=== PATIENT | female | born 1985 ===

== ENCOUNTER 2016-08-03 13:46 | Emergency (ER) | payer BC ==
[2016-08-03 13:58] VITALS: BMI 24.5
[2016-08-03 14:01] VITALS: TEMP 97.9; O2SAT 100
[2016-08-03] MEDS ORDERED: Sodium Chloride 0.9% 1,000 ML IV STA (14:21)
[2016-08-03 14:41] LABS: ADD MANUAL DIFF? NO
--- NOTE | 2016-08-03 14:47 | ED PDOC ---
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 Patient reports yesterday night prior to intercourse the pain was dull but after intercourse it became worse. Patient states in the middle of the night she went to have a bowel movement and the pain became worse and as she was walking back to the bed she had a near syncopal episode. She denies any nausea, vomiting, diarrhea, constipation, urinary symptoms, fever, chest pain, shortness of breath, or any other complaints at this time. Last menstrual cycle was on 07/13/2016. PMD: None Time/Duration: Other (12-18 hours) Symptom Onset: Sudden Symptom Course: Unchanged Quality: Other Activities at Onset: Rest Context: Home Past Medical History - Provider Review Nursing Documentation Reviewed: Yes - Infectious Disease Hx of Infectious Diseases: None - Cardiac Hx Cardiac Disorders: No - Pulmonary Hx Respiratory Disorders: No - Neurological Hx Neurological Disorder: No - HEENT Hx HEENT Disorder: No - Renal Hx Renal Disorder: No - Endocrine/Metabolic Hx Endocrine Disorders: No - Hematological/Oncological Hx Blood Disorders: No - Integumentary Hx Dermatological Disorder: No - Musculoskeletal/Rheumatological Hx Musculoskeletal Disorders: No - Gastrointestinal Hx Gastrointestinal Disorders: No - Genitourinary/Gynecological Hx Genitourinary Disorders: No - Psychiatric Hx Psychophysiologic Disorder: No Hx Substance Use: No - Surgical History Other/Comment: deviated sputum repair - Anesthesia Hx Anesthesia: Yes Hx Anesthesia Reactions: No Family/Social History - Physician Review Nursing Documentation Reviewed: Yes Family/Social History: Unknown Family HX Smoking Status: Never Smoked Hx Alcohol Use: No Hx Substance Use: No Allergies/Home Meds Allergies/Adverse Reactions: Allergies aspirin Allergy (Verified 08/03/16 13:58) RASH Review of Systems - Physician Review All systems were reviewed & negative as marked: Yes - Review of Systems Constitutional: absent: Fevers Respiratory: absent: SOB Cardiovascular: absent: Chest Pain Gastrointestinal: Abdominal Pain. absent: Constipation, Diarrhea, Nausea, Vomiting Genitourinary Female: absent: Dysuria, Frequency, Hematuria, Urine Output Changes Physical Exam Vital Signs Reviewed: Yes Vital Signs Temp Pulse Resp BP Pulse Ox 08/03/16 16:57 56 L 14 109/62 100 08/03/16 14:00 97.9 F 50 L 18 108/71 100 Temperature: Afebrile Blood Pressure: Normal Pulse: Bradycardic Respiratory Rate: Normal Appearance: Positive for: Well-Appearing, Non-Toxic, Comfortable Pain Distress: None Mental Status: Positive for: Alert and Oriented X 3 - Systems Exam Head: Present: Atraumatic, Normocephalic Pupils: Present: PERRL Conjunctiva: Present: Normal Mouth: Present: Moist Mucous Membranes Pharnyx: Present: Normal. No: ERYTHEMA, EXUDATE Neck: Present: Normal Range of Motion Respiratory/Chest: Present: Clear to Auscultation, Good Air Exchange. No: Respiratory Distress, Accessory Muscle Use Cardiovascular: Present: Normal S1, S2, Bradycardic. No: Murmurs Abdomen: Present: Tenderness (b/L lower pelvic pain (L>R); no lower or upper quadrant pain), Normal Bowel Sounds. 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 No: Cyanosis, Edema Lower Extremity: Present: Normal Inspection. No: Edema Neurological: Present: GCS=15, CN II-XII Intact, Speech Normal Skin: Present: Warm, Dry, Normal Color. No: Rashes Psychiatric: Present: Alert, Oriented x 3, Normal Insight, Normal Concentration Medical Decision Making ED Course and Treatment: 08/03/16 14:08 Impression: A 30 year old female with suprapubic pain. Differential Diagnosis include but are not limited to: ovarian cyst vs. STD vs UTI Plan: -- Transvaginal US -- Labs -- Urinalysis -- Chlamydia/GC RNA -- Toradol and IV Fluids -- Reassess and disposition Progress Notes: 08/03/16 17:47 Patient with noted history with adnexal tenderness on exam. No abdominal tenderness; labs are unremarkable. Sono showing no trosion but free fluid is present, and patient and feels full resolution of symptoms with nsaid - etiology may have been possible ovarian cyst rupture. 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 - Lab Interpretations Lab Results: 08/03/16 14:30 08/03/16 14:30 Lab Results 08/03/16 14:30: Urine Color Yellow, Urine Appearance Clear, Urine pH 6.0, Ur Specific [place] >= 1.030, Urine Protein Negative, Urine Glucose (UA) Negative, Urine Ketones Negative, Urine Blood Negative, Urine Nitrate Negative, Urine Bilirubin Negative, Urine Urobilinogen 0.2, Ur Leukocyte Esterase Negative, Urine HCG, Qual Negative 08/03/16 14:30: Sodium 137, Potassium 3.9, Chloride 101, Carbon Dioxide 25, Anion Gap 15, BUN 12, Creatinine 0.7, Est GFR ( Amer) > 60, Est GFR (Non- Af Amer) > 60, Random Glucose 85, Calcium 9.4, Total Bilirubin 1.0, AST 24, ALT 36, Alkaline Phosphatase 50, Total Protein 8.0, Albumin 4.5, Globulin 3.5, Albumin/Globulin Ratio 1.3, Amylase 127 H, Lipase 61 08/03/16 14:30: PT 11.6, INR 1.07, APTT 28.9 08/03/16 14:30: WBC 6.7, RBC 4.97, Hgb 15.0, Hct 43.2, MCV 86.9, MCH 30.2, MCHC 34.7, RDW 13.2, Plt Count 183, MPV 11.6 H, Gran % 50.8, Lymph % (Auto) 41.5 H, [place] % (Auto) 6.7 H, Eos % (Auto) 0.9 L, Baso % (Auto) 0.1, Gran # 3.41, Lymph # 2.8, [place] # 0.5, Eos # 0.1, Baso # 0.01 I have reviewed the lab results: Yes - RAD Interpretation Radiology Orders: 08/03/16 14:21 TRANSVAGINAL [US] Stat - Medication Orders Current Medication Orders: Discontinued Medications Sodium Chloride (Sodium Chloride 0.9%) 1,000 mls @ 999 mls/hr IV .Q1H1M STA Stop: 08/03/16 15:21 Last Admin: 08/03/16 14:45 Dose: 999 mls/hr Ketorolac Tromethamine (Toradol) 30 mg IVP STAT STA Stop: 08/03/16 14:21 Last Admin: 08/03/16 14:44 Dose: 30 mg - Scribe Statement The provider has reviewed the documentation as recorded by the Britneyibosmin Calzada Provider Scribe Attestation: All medical record entries made by the Scribe were at my direction and personally dictated by me. I have reviewed the chart and agree that the record accurately reflects my personal performance of the history, physical exam, medical decision making, and the department course for this patient. I have also personally directed, reviewed, and agree with the discharge instructions and disposition. Disposition/Present on Arrival - Present on Arrival Any Indicators Present on Arrival: No History of DVT/PE: No History of Uncontrolled Diabetes: No Urinary Catheter: No History of Decub. Ulcer: No History Surgical Site Infection Following: None - Disposition Have Diagnosis and Disposition been Completed?: Yes Diagnosis: Pelvic pain Disposition: HOME/ ROUTINE Disposition Time: 17:50 Patient Plan: Discharge Condition: GOOD Discharge Instructions (ExitCare): Ovarian Cyst (ED) Additional Instructions: Take Naprosyn as needed for pain. Drink plenty of fluids. Avoid intercourse till full resolution of symptoms. Follow up with gynecology. Return to the emergency department if any new concerning symptoms. Prescriptions: Naproxen [Naprosyn] 500 mg PO BID PRN #30 tab PRN Reason: Pain Referrals: Earl Neal MD [Staff Provider] - Follow up with primary Oswald Moreau DO [Staff Provider] - Follow up with primary Forms: WORK NOTE
[2016-08-03 14:54] LABS: URINE BILIRUBIN NEGATIVE (NEGATIVE); URINE BLOOD NEGATIVE (NEGATIVE); URINE GLUCOSE (UA) NEGATIVE (NEGATIVE); URINE KETONE NEGATIVE (NEGATIVE); URINE LEUKOCYTE ESTERASE NEGATIVE Leu/uL (NEGATIVE); URINE PROTEIN NEGATIVE mg/dL (<30 mg/dL); URINE UROBILINOGEN 0.2 E.U./dL (<1 E.U./dL)
[2016-08-03 14:55] LABS: BASO # 0.01 [, K/mm3] (0.0-2.0); BASO % 0.1 % (0.0-3.0); EOS # 0.1 (0.0-0.7); EOS % 0.9 % (1.5-5.0); GRAN # 3.41 (1.4-6.5); GRAN % 50.8 % (50.0-68.0); HEMATOCRIT 43.2 % (36.0-48.0); LYMPH # 2.8 (1.2-3.4); LYMPH % 41.5 % (22.0-35.0); MEAN CELL VOLUME 86.9 fL (80.0-105.0); MEAN CORPUSCULAR HEMOGLOBIN 30.2 pg (25.0-35.0); MEAN CORPUSCULAR HGB CONC 34.7 g/dl (31.0-37.0); MEAN PLATELET VOLUME 11.6 fl (7.0-11.0); MONO # 0.5 (0.1-0.6); MONO % 6.7 % (1.0-6.0); PLATELET COUNT 183 [, 10^3/uL] (120.0-450.0); RED CELL DISTRIBUTION WIDTH 13.2 % (11.5-14.5); URINE APPEARANCE CLEAR (CLEAR); URINE COLOR YELLOW (YELLOW); WHITE BLOOD COUNT 6.7 [, 10^3/ul] (4.5-11.0)
[2016-08-03 14:59] LABS: INR 1.07 (0.93-1.08); PARTIAL THROMBOPLASTIN TIME 28.9 Seconds (23.7-30.8)
[2016-08-03 15:01] LABS: ALB/GLOB RATIO 1.3 (1.1-1.8); ALKALINE PHOSPHATASE 50 U/L (38-133); ALT/SGPT 36 U/L (7-56); AMYLASE 127 U/L (35-125); AST/SGOT 24 U/L (15-39); BLOOD UREA NITROGEN 12 mg/dL (7-21); CALCIUM 9.4 mg/dL (8.4-10.5); CARBON DIOXIDE 25 mmol/L (21-33); CHLORIDE 101 mmol/L (98-107); GFR AFRICAN-AMERICAN > 60; GLUCOSE,RANDOM 85 mg/dL (70-110); LIPASE 61 U/L (23-300); POTASSIUM 3.9 mmol/L (3.6-5.0); SODIUM 137 mmol/L (132-148)
[2016-08-03 17:11] VITALS: RESP 14
--- NOTE | 2016-08-03 17:37 | US ---
HISTORY: b/L pelvic pain post intercourse - r/o torsion. LMP 07/13/2016. COMPARISON: None. TECHNIQUE: Transvaginal only. Real -time technique with 2D, duplex and color Doppler FINDINGS: UTERUS: Measures 3.6 x 4.2 x 7 cm. Normal in size and appearance. No fibroid or other mass lesion seen. ENDOMETRIUM: Measures 12.9 mm in diameter. No ultrasound findings to suggest gestational sac, fluid, debris, mass or polyp or other pathologic process within the endometrium. CERVIX: No cervical abnormality identified. RIGHT OVARY: Measures 1.8 x 3.4 cm. No solid mass. Normal flow. LEFT OVARY: Measures 2.2 x 2.6 cm. No solid mass. Normal flow. FREE FLUID: Trace free fluid identified in the pelvis/cul de sac. OTHER FINDINGS: None. IMPRESSION: No evidence of adnexal torsion. Additional benign and/or incidental findings described above.
[2016-08-03 18:07] VITALS: BP 110/72; PULSE 52
== END 2016-08-03 18:07 | disposition home or self-care (01) ==
LOC: ED 13:46
DX: R10.2 Pelvic and perineal pain (principal)
CPT/HCPCS: 76830; 80053; 81003; 82150; 83690; 84703; 85025; 85610; 85730; 87491; 87591; 96361; 96374; 99284; J1885; J7040